=== PATIENT | female | born 1940 | race Caucasian/White ===

== ENCOUNTER 2021-08-07 05:13 | Observation (INO) | payer MEDICARE ==
[2021-08-07] MEDS ORDERED: Fentanyl 100 MCG/2 ML VIAL ONE ×2 (05:50→07:34)
[2021-08-07 06:49] LABS: #Eosinphils 0.2 10x3/uL (0.0-0.5); #Monocytes 0.8 10x3/uL (0.0-1.1); #Neutrophils 9.7 10x3/uL (1.5-8.4); %Basophils 0.3 % (0.0-2.0); %Eosinophils 1.6 % (0.0-6.0); %Lymphocytes 10.4 % (18.0-47.0); %Monocytes 6.5 % (0.0-10.0); %Neutrophils 80.9 % (40.0-75.0); Hemoglobin 12.6 g/dL (12.0-15.5); Mean Corpuscular HGB CONC 32.1 g/dL (32.0-36.0); Mean Corpuscular Hemoglobin 31.6 pg (27.0-33.0); Mean Corpuscular Volume 98.2 fl (81.6-98.3); Mean Platelet Volume 9.1 fl (7.4-10.4); Platelet Count 230 10x3/uL (150-450); RBC Distribution Width 13.2 % (11.5-14.5); Red Blood Cell (RBC) Count 3.99 10x6/uL (3.90-5.03)
[2021-08-07 07:05] LABS: ALT (SGPT) 22 U/L (8-55); AST (SGOT) 17 U/L (5-34); Albumin 4.2 g/dL (3.4-4.8); Alkaline Phosphatase 87 U/L (40-110); Anion Gap 17 mmol/L (10-20); BUN (Urea Nitrogen) 14 mg/dL (9.8-20.1); Bilirubin, Total 0.7 mg/dL (0.2-1.2); Calc. Creatinine Clearance 0 mL/min (70-130); Calcium 9.4 mg/dL (7.8-10.44); Carbon Dioxide 25 mmol/L (23-31); Chloride 101 mmol/L (98-107); Globulin 2.4 g/dL (2.4-3.5); Glucose 133 mg/dL (83-110); Protein, Total 6.6 g/dL (5.8-8.1); Sodium 139 mmol/L (136-145)
[2021-08-07] MEDS ORDERED: HYDROcodone/Acetaminophen 5/325 mg Tablet PO PRN (08:15)
[2021-08-07] MEDS ORDERED: Guaifenesin DM 100-10/5 ML UDCUP PO PRN (08:15)
[2021-08-07] MEDS ORDERED: Senokot S 8.6-50 MG TAB PO PRN (08:15)
[2021-08-07] MEDS ORDERED: Acetaminophen 325 MG TAB PO PRN (08:15)
[2021-08-07 09:01] LABS: SARS-CoV-2 NAA Rapid Test Not Detected (NotDetected)
[2021-08-07] MEDS ORDERED: oxyCODONE 5 MG TAB PO PRN (09:13)
[2021-08-07] MEDS: Sodium Chloride 0.9% 1,000 ML IV SCH (11:11)
[2021-08-07] MEDS: Lidocaine 5% Patch TD SCH (11:11)
[2021-08-07] MEDS: Famotidine 20 MG TAB PO SCH ×2 (12:00→20:51)
[2021-08-07] MEDS: Enoxaparin Sodium 40 MG/0.4 ML SYRINGE SC SCH (12:00)
[2021-08-07] MEDS: Ketorolac Tromethamine 30 MG/ML VIAL IVP SCH ×2 (12:01→17:31)
[2021-08-07] MEDS ORDERED: traZODone HCl 50 MG TAB PO PRN (15:48)
[2021-08-07] MEDS: oxyCODONE 5 MG TAB PO PRN ×2 (15:53→22:25)
[2021-08-07 16:42] LABS: Bilirubin Neg (Negative); Blood, Urine Negative (Negative); Clarity Clear (Clear); Glucose, Urine (Dipstick) Normal (Negative); Ketone, Urine Negative (Negative); Leukocyte Negative (Negative); Nitrite Negative (Negative); Protein, Urine (Dipstick) Negative (Neg-Trace); Specific Gravity, Urine 1.015 (1.002-1.036); Urobilinogen Normal mg/dL (Less than 2)
[2021-08-07 16:50] LABS: Bacteria/HPF Rare-Few HPF (None Seen); RBC/HPF 0-3 HPF (0-3); Squamous Epithelial 0-3 HPF (0-3)
[2021-08-07] MEDS ORDERED: Benzonatate 100 MG CAP PO PRN (20:35)
[2021-08-07] MEDS: Oxybutynin 5 MG TAB PO SCH (20:51)
[2021-08-07] MEDS: Gabapentin 300 MG CAP PO SCH (20:51)
[2021-08-07] MEDS ORDERED: Pramipexole Di-HCl 1 MG TAB PO SCH (21:00)
[2021-08-07] MEDS ORDERED: Gabapentin 300 MG CAP PO SCH (21:00)
[2021-08-07] MEDS ORDERED: Transdermal Patch Removal TOP SCH (22:30)
[2021-08-08] MEDS: Sodium Chloride 0.9% 1,000 ML IV SCH (00:05)
[2021-08-08] MEDS: Ketorolac Tromethamine 30 MG/ML VIAL IVP SCH ×3 (00:45→11:48)
[2021-08-08 03:50] LABS: #Basophils 0.1 10x3/uL (0.0-0.2); #Eosinphils 0.4 10x3/uL (0.0-0.5); #Monocytes 0.7 10x3/uL (0.0-1.1); #Neutrophils 4.6 10x3/uL (1.5-8.4); %Basophils 0.9 % (0.0-2.0); %Eosinophils 5.1 % (0.0-6.0); %Lymphocytes 23.3 % (18.0-47.0); %Monocytes 9.2 % (0.0-10.0); %Neutrophils 61.1 % (40.0-75.0); Hemoglobin 11.7 g/dL (12.0-15.5); Mean Corpuscular HGB CONC 32.9 g/dL (32.0-36.0); Mean Corpuscular Hemoglobin 31.9 pg (27.0-33.0); Mean Platelet Volume 9.2 fl (7.4-10.4); Platelet Count 205 10x3/uL (150-450); RBC Distribution Width 13.3 % (11.5-14.5); Red Blood Cell (RBC) Count 3.67 10x6/uL (3.90-5.03); White Blood Cell (WBC) Count 7.5 10x3/uL (3.5-10.5)
[2021-08-08 04:02] LABS: Anion Gap 15 mmol/L (10-20); BUN (Urea Nitrogen) 21 mg/dL (9.8-20.1); Calc. Creatinine Clearance 76 mL/min (70-130); Calcium 9.3 mg/dL (7.8-10.44); Carbon Dioxide 24 mmol/L (23-31); Chloride 103 mmol/L (98-107); Glucose 126 mg/dL (83-110); Potassium 4.1 mmol/L (3.5-5.1); Sodium 138 mmol/L (136-145)
[2021-08-08 04:09] LABS: T4 5.7 ug/dL (4.87-11.72)
[2021-08-08 04:34] VITALS: BMI 25.9
[2021-08-08] MEDS ORDERED: Levothyroxine Sodium 50 MCG TAB PO SCH (06:00)
[2021-08-08] MEDS: Enoxaparin Sodium 40 MG/0.4 ML SYRINGE SC SCH (07:50)
[2021-08-08] MEDS: Famotidine 20 MG TAB PO SCH (07:51)
[2021-08-08] MEDS: Gabapentin 300 MG CAP PO SCH (07:51)
[2021-08-08] MEDS: Oxybutynin 5 MG TAB PO SCH (07:52)
[2021-08-08] MEDS: Lidocaine 5% Patch TD SCH (08:15)
[2021-08-08] MEDS ORDERED: Amlodipine 5 MG TAB PO SCH (09:00)
[2021-08-08] MEDS ORDERED: Triamterene/Hydrochlorothiazide TAB PO SCH (09:00)
[2021-08-08 11:46] VITALS: BP 156/72; TEMP 97.8
== END 2021-08-08 13:39 | disposition home or self-care (01) ==
LOC: CSHERS 05:13 → CSHICU 10:15 → INTOOBSV 10:15
PROVIDERS: ADMIT Family Medicine; ATTEND Family Medicine
DX: S27.0XXA Traumatic pneumothorax, initial encounter (principal); S22.41XA Multiple fractures of ribs, right side, initial encounter for closed fracture; R00.1 Bradycardia, unspecified; I10 Essential (primary) hypertension; E03.9 Hypothyroidism, unspecified; E78.5 Hyperlipidemia, unspecified; N32.81 Overactive bladder; G25.81 Restless legs syndrome; K44.9 Diaphragmatic hernia without obstruction or gangrene; G89.29 Other chronic pain; M54.9 Dorsalgia, unspecified; D72.829 Elevated white blood cell count, unspecified; M19.90 Unspecified osteoarthritis, unspecified site; Z79.1 Long term (current) use of non-steroidal anti-inflammatories (NSAID); Z79.82 Long term (current) use of aspirin; Z79.890 Hormone replacement therapy; Z79.899 Other long term (current) drug therapy; Z88.2 Allergy status to sulfonamides; Z88.5 Allergy status to narcotic agent; W18.30XA Fall on same level, unspecified, initial encounter; Y92.009 Unspecified place in unspecified non-institutional (private) residence as the place of occurrence of the external cause
CPT/HCPCS: 71045 ×2; 71250; 80048; 81001; 84436; 85025; 93005 ×2; 96372 ×2; 96374; 96376; 97139 ×2; 99285; G0378 ×3; U0002; 36415; 80053; 84443; 93010; J1650; J1885; J3010; J7050

== ENCOUNTER 2023-07-08 14:10 | Outpatient (CLI) | payer MEDICARE | END 2023-07-08 14:11 | disposition home or self-care (01) | LOC: CSHMAMMO 14:10 | PROVIDERS: ATTEND Internal Medicine | DX: Z12.31 Encounter for screening mammogram for malignant neoplasm of breast (principal); Z13.820 Encounter for screening for osteoporosis; Z78.0 Asymptomatic menopausal state; M81.0 Age-related osteoporosis without current pathological fracture | CPT/HCPCS: 77063; 77067; 77080 ==